=== PATIENT | female | born 1975 | race Caucasian/White ===

== ENCOUNTER 2017-08-06 07:16 | Emergency (ER) | payer SELFPAY ==
[~2017-08-06] VITALS: Ht 160 cm; Wt 57.0 kg
[2017-08-06 07:22] VITALS: BP 166/81; PULSE 94; RESP 15; TEMP 97.7; O2SAT 98
[2017-08-06] MEDS ORDERED: METHOCARBAMOL 500 MG TAB PO ONE (07:45)
[2017-08-06] MEDS ORDERED: oxyCODONE/ACETAMINOPHEN 5 MG/325 MG TAB PO ONE (07:45)
[2017-08-06] MEDS ORDERED: PERC5TAB12 PO (07:47)
[2017-08-06] MEDS ORDERED: SOMA250T PO (07:47)
--- NOTE | 2017-08-06 07:47 | PD ---
HPI Chief Complaint: Back/ Neck Pain or Injury Time Seen by Provider: 07:35 Travel History International Travel<30 days: No Contact w/Intl Traveler<30days: No Traveled to known affect area: No History of Present Illness HPI 41-year-old female with history of chronic back pain with cervical and lumbar surgeries in the past, reported spinal stenosis, recently moved here from [place], here for evaluation of lower back and neck pain. She states that she did a lot of heavy lifting during the move which caused her back pain to worsen. She usually takes Endocet and Soma for her pain, however is out of these medications. No new paresthesias or motor deficits. No urinary or bowel incontinence or retention. No fevers. She denies IVDU. Reports that she has no local physicians. PFSH Past Medical History LMP: ABLATION Social History Tobacco Use: Yes Allergies-Medications (Allergen,Severity, Reaction): Coded Allergies: No Known Allergies (Unverified , 08/06/17) Reported Meds & Prescriptions Reported Meds & Active Scripts Active Soma (Carisoprodol) 250 Mg Tab 250 Mg PO QID PRN Percocet (Oxycodone-Acetaminophen) 5-325 mg Tab 1 Tab PO Q6H PRN Reported Endocet (Oxycodone-Acetaminophen) 10-325 mg Tab 1 Tab PO Q4H PRN Soma (Carisoprodol) 350 Mg Tab 350 Mg PO QID PRN Review of Systems Except as stated in HPI: all other systems reviewed are Neg Physical Exam Narrative GENERAL: Well-developed, well-nourished, overall well-appearing, comfortable, ambulated from triage to exam room without difficulty and without assistance. SKIN: Focused skin assessment warm/dry. Midline vertical surgical scar that is well-healed over the mid/lower lumbar area. HEAD: Atraumatic. Normocephalic. EYES: Pupils equal and round. No scleral icterus. No injection or drainage. ENT: Mucous membranes pink and moist. NECK: Trachea midline. No JVD. CARDIOVASCULAR: Regular rate and rhythm. No murmur appreciated. RESPIRATORY: No accessory muscle use. Clear to auscultation. Breath sounds equal bilaterally. GASTROINTESTINAL: Abdomen soft, non-tender, nondistended. MUSCULOSKELETAL: No obvious deformities. No clubbing. No cyanosis. No edema. Normal muscle strength and range of motion in all 4 extremities. No midline vertebral step-off or tenderness. NEUROLOGICAL: Awake and alert. No obvious cranial nerve deficits. Motor grossly within normal limits. Normal speech. PSYCHIATRIC: Appropriate mood and affect; insight and judgment normal. Data Data Last Documented VS Vital Signs Date Time Temp Pulse Resp B/P (MAP) Pulse Ox O2 Delivery O2 Flow Rate FiO2 08/06/17 08:29 71 16 118/69 (85) 98 08/06/17 07:22 97.7 Orders Orders Oxycodone-Acetamin 5-325 Mg (Percocet (08/06/17 07:45) Methocarbamol (Robaxin) (08/06/17 07:45) Ed Discharge Order (08/06/17 07:48) [facility] Medical Decision Making Medical Screen Exam Complete: Yes Emergency Medical Condition: Yes Differential Diagnosis Chronic back pain, cord compression unlikely Narrative Course This is a 41-year-old female with chronic back issues who presents for acute worsening of pain. Physical exam does not show any signs of cord compression. There are no red flags for low back pain. Plan is to give her a short course of her pain medication and muscle relaxants and have her follow-up with our neurosurgeon as an outpatient. She was advised on when to return to the emergency department. She verbalizes understanding and agreement with plan. Diagnosis Primary Impression: Chronic back pain Qualified Codes: M54.9 - Dorsalgia, unspecified; G89.29 - Other chronic pain Referrals: Roger Nicholas MD 3 days Primary Care Physician 3 days Additional Instructions: Follow-up with neurosurgeon Dr. Nicholas this week. Follow-up with a primary care physician this week. Return to the emergency department for worsening symptoms or any other concerns as discussed. Scripts Carisoprodol (Soma) 250 Mg Tab 250 MG PO QID Y for PAIN, #12 TAB 0 Refills Prov: Song Mccullough MD 08/06/17 Oxycodone-Acetaminophen (Percocet) 5-325 mg Tab 1 TAB PO Q6H Y for PAIN, #10 TAB 0 Refills Prov: Song Mccullough MD 08/06/17 Disposition: 01 DISCHARGE HOME Condition: Stable Song Mccullough MD Aug 06, 2017 07:47
[2017-08-06 08:29] VITALS: BP 118/69
[2017-08-06] MEDS ORDERED: SOMA350T PO (08:29)
[2017-08-06] MEDS ORDERED: ENDO10TA8 PO (08:29)
== END 2017-08-06 08:30 | disposition home or self-care (01) ==
LOC: PHED 07:16
DX: M54.9 Dorsalgia, unspecified (principal); G89.29 Other chronic pain; Z72.0 Tobacco use
CPT/HCPCS: 99283